=== PATIENT | female | born 1970 | race Caucasian/White ===

== ENCOUNTER 2016-12-21 08:00 | Inpatient (IN) | payer OTHER ==
[~2016-12-21] VITALS: Ht 162.6 cm; Wt 47.6 kg
--- NOTE | ~2016-12-21 | PN ---
Unit #: [id number] #: [id number] Patient: XENIA FRAIRE [id number] [facility] [address] [place] [address] [id number] I MR#: [id number] NAME: XENIA FRAIRE. ROOM: P122 Age: 46 Sex: F Admission Date: 12/21/2016 : 1970 Attending Physician: Az Lilly M.D. Admitting Physician: Az Lilly M.D. Primary Care Physician: Manfred Cordero PROGRESS NOTES DATE OF SERVICE: 12/23/2016 DISCUSSION Ms. Xenia Fraire is a 46-year-old female, seen on 12/23/2016. The patient was admitted on MIW. The patient was pleasant and cooperative. Reports that she is not having any suicidal ideation. Able to participate in all the activities. The patient's vital signs stable. Compliant with medication. The patient somewhat anxious and nervous. Mood was labile. REVIEW OF SYSTEMS Complete review of systems unremarkable. MENTAL STATUS EXAMINATION General appearance, the patient dressed casually. Attention span and concentration, fair. Oriented in time, place, and person. Mood and affect, labile. Speech, monotone. Thought process, concrete. The patient denied any thoughts of harming self or others. Recent and remote memory, poor. Insight and judgment, poor. DIAGNOSIS Mood disorder, not otherwise specified. ASSESSMENT AND PLAN Advised to continue with current medication and therapeutic protocol. If needed, consider further adjustment of medication. Dictated by... Manfred Ferrell/osiris TD: 12/23/2016 13:45 JOB #: [id number] Unit #: [id number] #: [id number] Patient: XENIA FRAIRE PROGRESS NOTES Page 1 of 1 X Az Lilly MD X PROGRESS NOTE
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
--- NOTE | ~2016-12-21 | DS ---
Unit #: [id number] #: [id number] Patient: MYAH SULTANA [id number] [facility] [address] [place] [address] [id number] I MR#: [id number] NAME: MYAH SULTANA. ROOM: [facility] Age: 46 Sex: F Admission Date: 12/21/2016 : 1970 Discharge Date: 12/24/2016 Attending Physician: Az Lilly M.D. Primary Care Physician: uV Smalls M.D. DISCHARGE SUMMARY REASON FOR ADMISSION Suicidal ideation. LABORATORY DATA Unremarkable. HOSPITAL COURSE The patient was admitted to inpatient unit on December 21, 2016 and discharged on 12/24/2016. The patient was treated on the inpatient unit with medication management, pastoral care, psychoeducation, and psychotherapy. The patient was responsive to treatment, maintained safe behavior. The patient was treated with Remeron, Desyrel, and Inderal, subsequently the patient was discharged with a plan to follow up in outpatient program. DISCHARGE MEDICATIONS 1. Remeron 45 mg at bedtime for depression. 2. Desyrel 50 mg at bedtime for sleep. 3. Inderal 20 mg 2 times daily for hypertension. DISCHARGE DIAGNOSES Psychiatric: Major depressive disorder, recurrent, severe, F33.2. Anxiety disorder, not otherwise specified, F40.01. History of eating disorder. Secondary diagnosis: Deferred. Medical diagnoses: History of Graves disease. Headache. Gastroesophageal reflux disease. Chronic pain. Stressors: Psychosocial stressors. Relationship problem. DISCHARGE INSTRUCTIONS The patient to follow up in outpatient clinic as per social group worker. CONDITION ON DISCHARGE The patient was pleasant and cooperative. Denied any suicidal or homicidal ideation. Denied any psychotic symptom. DIET AND ACTIVITY As tolerated. Dictated by... Az Lilly M.D. Unit #: [id number] #: [id number] Patient: MYAH SULTANA SZC/modl TD: 12/25/2016 03:54 JOB #: [id number] DISCHARGE SUMMARY Page 1 of 1 X Az Lilly MD X DISCHARGE SUMMARY
--- NOTE | ~2016-12-21 | PN ---
Unit #: [id number] #: [id number] Patient: XENIA FRAIRE [id number] [facility] [address] [place] [address] [id number] I MR#: [id number] NAME: XENIA FRAIRE. ROOM: P122 Age: 46 Sex: F Admission Date: 12/21/2016 : 1970 Attending Physician: Az Lilly M.D. Admitting Physician: Az Lilly M.D. Primary Care Physician: Manfred Cordero PROGRESS NOTES DATE 12/22/2016 DISCUSSION Ms. Xenia Fraire is a 46-year-old female, seen on 12/22/2016. The patient interviewed, chart reviewed, and obtained information from the nursing staff. The patient was compliant and cooperative. Mood was labile, anxious, nervous. The patient admitted taking overdose of pills but denied any suicidal ideation but mood lability. REVIEW OF SYSTEMS Complete review of systems unremarkable. MENTAL STATUS EXAMINATION General appearance: Patient thin-built in hospital attire. Attention span and concentration, fair. Oriented in place and person. Mood and affect, labile. Speech, rapid in rate. Thought process, circumstantial. The patient denied any thoughts of harming self or others but somewhat guarded. Recent and remote memory, poor. Insight and judgment, poor. DIAGNOSIS Major depressive disorder, recurrent, severe, F33.2. ASSESSMENT/PLAN Advised to continue with the current medication and therapeutic protocol, and if needed consider further adjustment of medication. Dictated by... Manfred Ferrell/moon TD: 12/23/2016 13:12 JOB #: [id number] Unit #: [id number] #: [id number] Patient: XENIA FRAIRE PROGRESS NOTES Page 1 of 1 X Az Lilly MD X PROGRESS NOTE
--- NOTE | ~2016-12-21 | A ---
[facility] Nutrition Therapy DATE: 12/23/16 Patient: MYAH SULTANA Physician: ISAI Address: [address] [facility] Room/Bed: [address], Zip: [place] [address] Admit Date: 12/21/16 Date of : [birth year] Height: 5 4 Weight: 104 47.23935 NUTRITIONAL ASSESSMENT: REASON: LOW BMI (18.0) PATIENT ADMITTED FOR DEPRESSION AND POSSIBLE SI PMH: GERD, GRAVES DISEASE, CHRONIC PAIN Anthropometrics: HT: 64", WT: 105#, BMI: 18.0, %IBW: 88 Labs: 12/23/16- ALL NUTRITION LABS WNL Meds: REMERON, KLONOPIN, ZFRAN, PROTONIX, DESYREL, VISTARIL, SYNTHROID Assessment: PATIENT IS A 46 Y/O FEMALE ADMITTED FOR DEPRESSION AND POSSIBLE SI. PATIENT IS CURRENTLY ON DISABILITY, SMOKES 2 PPD, AND DENIES ANY OTHER SUBSTANCE ABUSE. IT IS NOTED THAT PATIENT WAS HOSPITALIZED FOR AN EATING DISORDER 25 YEARS AGO, AND SHE HAS QUESTIONABLE MEDICATION COMPLIANCE OUTSIDE OF THIS FACILITY. UPON ADMIT PATIENT STATED A GOOD APPETITE WITH NO RECENT WEIGHT LOSS, AND SHE HAS NOT BEEN SLEEPING (2HRS/NIGHT AVERAGE). THERE ARE NO SKIN OR GI ISSUES NOTED ATT. CURRENT PSYCH MEDS AND REMERON MAY CAUSE AN INCREASE IN WEIGHT AND APPETITE, WHICH IS PREFERRED. PATIENT'S BMI IS BELOW A HEALTHY RANGE OF 19-25 AND SHE IS 88% OF HER IBW. PATIENT IS ON A REGULAR DIET, AND SHE DID NOT SCORE ANY NUTRITIONAL RISK POINTS. Dx: INADEQUATE NUTRIENT INTAKE R/T DEPRESSION, CURRENT CONDITION AEB LOW BMI, <88% IBW Intervention: REGULAR DIET, LARGE PORTIONS, MEDS PER MD, PSYCH Monitoring, Evaluation and Goals: 1. ADEQUATE PO INTAKES >50-75% OF MEALS 2. PREVENT, CORRECT MICRO.MACRO NUTRIENT DEFICIENCIES 3. WEIGHT; PROMOTE A STEADY WEIGHT GAIN TOWARDS A HEALTHY BMI OF 19-25, PREVENT WEIGHT LOSS MONITOR: WEIGHTS, LABS, PO/FLUID INTAKES Recommendations: 1. CONTINUE REGULAR DIET TOLERATED. OFFER SNACKS BETWEEN MEALS. WILL INCREAESE PATIENT'S ENTREES TO LARGER PORTIONS D/T NEED FOR INCREASED CALORIC INTAKE 2. ENCOURAGE ADEQUATE PO AND FLUID INTAKES 3. OBTAIN WEIGHTS ROUTINELY (EVERY 3-4 DAYS) [facility] Nutrition Therapy DATE: 12/23/16 Patient: MYAH E KAYY Physician: ISAI Address: [address] [place] [address] Room/Bed: [address], Zip: [place] [address] Admit Date: 12/21/16 Date of : [birth year] Height: 5 4 Weight: 104 47.33823 4. IF PO INTAKES ARE BELOW 50-75% OF MEALS PLEASE ORDER ENSURE BID TO PROMOTE ADEQUATE KCAL AND PROTEIN INTAKES RD TO F/U PER PROTOCOL AND PRN R/T PATIENT MILDLY COMPROMISED Respectfully, CORDELL MABRY, RD, LD [facility] cc: client file
--- NOTE | ~2016-12-21 | HP ---
Unit #: [id number] #: [id number] Patient: MYAH SULTANA [id number] [place] [address] [id number] MR#: [id number] NAME: MYAH SULTANA ROOM: P122 Age: 46 Sex: F Admission Date: 12/21/2016 : 1970 Attending Physician: Az Lilly M.D. Admitting Physician: Az Lilly M.D. Primary Care Physician: Vu Smalls M.D. HISTORY AND PHYSICAL REASON FOR ADMISSION Acute psychiatric inpatient admission. HISTORY OF PRESENT ILLNESS The patient is a 46-year-old female, increased depression. The patient was having conflict at home, possible suicidal ideation at home, emotional distress. PAST MEDICAL HISTORY Prior history of GERD, Graves disease, chronic pain syndrome, headaches. PAST SURGICAL HISTORY As per chart. CURRENT HOME MEDICATIONS Atenolol, baclofen, Klonopin, diclofenac, Fioricet, Atarax, Macrobid, multivitamin, Nexium, oxycodone, propranolol, Synthroid, trazodone, and vitamin D. FAMILY HISTORY Reviewed and noncontributory. SOCIAL HISTORY Positive tobacco. Denies alcohol or illicit drug use. REVIEW OF SYSTEMS Please see HPI. Twelve point otherwise negative except for those positive noted in the HPI. PHYSICAL EXAMINATION GENERAL: Awake, alert, oriented to person, place, and time. Well built, well nourished. Does not appear to be in any acute distress. VITAL SIGNS: Temperature 97.3, blood pressure 97/66, respiratory rate 18, pulse 82. HEAD: Atraumatic. Normocephalic. EYES: Bilateral extraocular muscles are normal. Pupils equal, reactive to light and accommodation. Sclerae are normal. No jaundice. NECK: Neck is supple. No neck rigidity. No thyromegaly. No carotid bruit. No JVD. Oral mucosa is moist. CHEST: Bilateral vesicular breathing. Clear to auscultation. No basilar rales. CARDIOVASCULAR: S1 and S2 normal. No murmur, no gallop, no rub. ABDOMEN: Soft, nontender. No organomegaly. Bowel sounds are normal. No Unit #: [id number] #: [id number] Patient: MYAH SULTANA hernia, no masses, no rebound, no guarding. EXTREMITIES: No pitting edema. No calf tenderness. Extremity pulses, including dorsalis pedis, have good volume. BACK: Normal spine curvature. No spine tenderness. No costovertebral angle tenderness. SCRATCH BRUSHER: Cranial nerves normal bilaterally. Motor function bilaterally symmetric and normal. Sensory system normal. SKIN: Warm and dry. INITIAL IMPRESSION 1. Acute psychiatric inpatient admission. 2. Prior history of Graves disease. 3. Prior history of chronic pain syndrome. 4. Prior history of chronic headaches and/or gastroesophageal reflux disease. PLAN As per psychiatrist, medical condition stable, medical prognosis is fair. There are no medical contraindications to patient participating in activities while here at [facility]. Dictated by... Enrique Britton M.D. CLIFF/osiris TD: 12/22/2016 16:17 JOB #: [id number] HISTORY AND PHYSICAL Page 1 of 1 X Enrique Britton MD X HISTORY AND PHYSICAL
--- NOTE | ~2016-12-21 | CO ---
Unit #: [id number] #: [id number] Patient: MYAH SULTANA [id number] [place] [address] [id number] MR#: [id number] NAME: MYAH SULTANA. ROOM: P122 Age: 46 Sex: F Admission Date: 12/21/2016 : 1970 Attending Physician: Az Lilly M.D. Primary Care Physician: Vu Smalls M.D. Consultation Date: 12/22/2016 CONSULTATION REPORT REASON FOR CONSULTATION Medical management. HISTORY OF PRESENT ILLNESS Please see H and P for details of initial part of hospital stay. The patient takes numerous medications at home secondary to associated comorbid conditions including Graves disease, chronic back pain, generalized anxiety disorder, and hypertension. The medications have been reviewed in detail. There is questionable compliance of many of these medications, so they have not been resumed including her propranolol, trazodone, and other psychiatric medications. I will defer that decision to the psychiatrist, but in regard to her medications including atenolol, Macrobid, as well as propranolol, these medications can be resumed. I will ask for a repeat urinalysis to ensure, there is no repeat urinalysis now. We will also try to send off for culture and sensitivity as well. Her Macrobid ultimately may be discontinued if her UA is normal. Appropriate vital signs and/or blood pressure should be monitored while she is on these routine medications. I have also written for a TSH, hemoglobin A1c, and BMP to be done in the morning and certainly call with any questions or concerns, but at this point in time we will resume her home medications as it is, but she will be followed closely. Thank you Dr. Lilly for this consultation. Dictated by... Enrique Britton M.D. CLIFF/osiris TD: 12/22/2016 17:08 JOB #: [id number] CONSULTATION REPORT Page 1 of 1 X Enrique Britton MD X CONSULTATION REPORT
[~2016-12-21 08:00] MED LIST: FLEXERIL10 MG PO
[2016-12-22 11:11] LABS: URINE APPEARANCE CLOUDY; URINE BILIRUBIN NEG (NEG); URINE BLOOD NEG (NEG); URINE COLOR YELLOW; URINE GLUCOSE NEG (NEG); URINE KETONE NEG (NEG); URINE LEUKOCYTE ESTERASE NEG (NEG); URINE NITRATE NEG (NEG); URINE PROTEIN NEG (NEG); URINE SPECIFIC GRAVITY 1.024 (1.003-1.035); URINE UROBILINOGEN 0.2 MG/DL (NEG)
[2016-12-22 11:29] LABS: CULTURE INDICATED? NO
[2016-12-22 11:57] LABS: THYROID STIMULATING HORMONE 0.36 uIU/ml (0.34-5.60)
[2016-12-23 10:17] LABS: BUN/CREATININE RATIO 21.42; CALCIUM SERUM 9.3 mg/dL (8.4-10.2); CREATININE SERUM 0.7 mg/dL (0.6-1.4); GLOM FILT RATE Estimated 103.2 mL/min (>60); POTASSIUM 4.5 mmol/L (3.5-5.1)
== END 2016-12-24 18:00 | disposition home or self-care (01) | DRG 885 ==
LOC: P1S 09:41
PROVIDERS: Psychiatry & Neurology Psychiatry
DX: F33.2 Major depressive disorder, recurrent severe without psychotic features (principal); F39 Unspecified mood [affective] disorder; I10 Essential (primary) hypertension; F41.9 Anxiety disorder, unspecified; E05.00 Thyrotoxicosis with diffuse goiter without thyrotoxic crisis or storm; R51 Headache; K21.9 Gastro-esophageal reflux disease without esophagitis; G89.4 Chronic pain syndrome; F41.1 Generalized anxiety disorder
CPT/HCPCS: 80048; 81003; 83036; 84439; 84443; 84703